=== PATIENT | male | born 1970 | race Caucasian/White ===

== ENCOUNTER 2020-01-06 13:36 | Emergency (ER) | payer OTHER, MEDICAID ==
[~2020-01-06] VITALS: Ht 175.3 cm; Wt 81.7 kg
[2020-01-06 15:08] LABS: INFLUENZA A ANTIGEN Negative (Negative); INFLUENZA B ANTIGEN Negative (Negative)
[2020-01-06 15:26] LABS: ABSOLUTE BASOPHILS 0.1 thou/uL (0.0-0.2); ABSOLUTE EOSINOPHILS 0.1 thou/uL (0.0-0.7); ABSOLUTE LYMPHOCYTES 0.7 thou/uL (0.8-5.3); ABSOLUTE MONOCYTES 0.7 thou/uL (0.0-1.2); ABSOLUTE NEUTROPHILS 7.7 thou/uL (1.6-8.1); BASOPHILS 0.7 %; EOSINOPHILS 1.1 %; HEMATOCRIT 41.9 % (42.0-52.0); HEMOGLOBIN 15.1 gm/dL (14.0-18.0); LYMPHOCYTES 7.8 %; MCH 32.4 pg (26.0-34.0); MCHC 35.9 g/dL (28.0-37.0); MCV 90.3 fL (80.0-100.0); MONOCYTES 7.1 %; MPV 10.1 fl. (7.2-11.1); NUCLEATED RBCS 0 /100WBC; PLATELET COUNT* 179 thou/uL (150-400); POLYS 83.3 %; RBC 4.64 mil/uL (4.50-6.00); RDW-CV 12.9 % (10.5-14.5); WBC 9.2 thou/uL (4.0-11.0)
[2020-01-06 15:35] LABS: CALCIUM 8.1 mg/dL (8.5-10.1); CREATININE 0.8 mg/dL (0.6-1.3); POTASSIUM 3.7 mmol/L (3.5-5.1)
[2020-01-06 15:46] LABS: ALBUMIN 3.7 g/dL (3.4-5.0); TOTAL BILIRUBIN 0.3 mg/dL (<0.1-1.0); TOTAL PROTEIN 7.4 g/dL (6.4-8.2)
[2020-01-06 16:34] LABS: SGOT 21.6 U/L (15-37)
[2020-01-06] MEDS ORDERED: VENTOLIN HFA 1818 GM INH (16:45)
[2020-01-06] MEDS ORDERED: TAMIFLU75 MG PO (16:45)
[2020-01-06] MEDS ORDERED: HYDROCODONE-CH115 ML PO ×2 (16:51→16:52)
[2020-01-06 16:59] VITALS: BP 120/75
--- NOTE | 2020-01-07 16:45 | EKG ---
[place] [address] ELECTROCARDIOGRAM REPORT Name: MORGAN MCKAY Room: [facility]#: [id number] Admission: 01/06/20 Attend Phys: Discharge: 01/06/20 Date of : 74 Date of Service: 01/06/20 1518 Report #: [id number] THIS REPORT FOR: //name// [facility] ED Test Date: 2020-01-06 Test Time: 15:18:21 Pat Name: MORGAN MCKAY Department: Room: Gender: Pediatric Medical Assistant: SEGUNDO : 1970 Requested By: Renee Nicole Order Number: [id number] MD: Davian To Measurements Intervals [place] Rate: 95 P: 58 VT: 121 QRS: 65 QRSD: 88 T: 75 QT: 346 QTc: 435 Interpretive Statements Sinus rhythm Nonspecific T abnormalities, lateral leads No previous ECG available for comparison Electronically Signed On 01-07-2020 16:44:29 BENCH MOLDER by Davian To [email or web address] <ELECTRONICALLY SIGNED> By: Davian To MD, [facility] 01/07/20 1644 1518 1518 Davian To MD, FAC /EPI
== END 2020-01-06 17:00 | disposition home or self-care (01) ==
LOC: M.ERS 13:36
PROVIDERS: Nurse Practitioner Family
DX: J98.8 Other specified respiratory disorders (principal); I25.2 Old myocardial infarction; Z88.5 Allergy status to narcotic agent; Z88.0 Allergy status to penicillin

== ENCOUNTER 2020-10-06 09:04 | Inpatient (IN) | payer OTHER ==
[~2020-10-06] VITALS: Ht 175.3 cm; Wt 81.6 kg
[2020-10-06] VITALS (13 sets, daily range): BP systolic 108–132; BP diastolic 62–96
[~2020-10-06 09:04] MED LIST: HYDROCODONE-CH115 ML PO; TAMIFLU75 MG PO; VENTOLIN HFA 1818 GM INH
[2020-10-06 09:22] LABS: ABSOLUTE BASOPHILS 0.1 thou/uL (0.0-0.2); ABSOLUTE EOSINOPHILS 0.2 thou/uL (0.0-0.7); ABSOLUTE LYMPHOCYTES 4.9 thou/uL (0.8-5.3); ABSOLUTE MONOCYTES 1.3 thou/uL (0.0-1.2); ABSOLUTE NEUTROPHILS 8.1 thou/uL (1.6-8.1); EOSINOPHILS 1.2 %; HEMATOCRIT 46.3 % (42.0-52.0); HEMOGLOBIN 16.1 gm/dL (14.0-18.0); LYMPHOCYTES 33.7 %; MCHC 34.7 g/dL (28.0-37.0); MCV 89.1 fL (80.0-100.0); MONOCYTES 8.9 %; MPV 9.4 fl. (7.2-11.1); NUCLEATED RBCS 0 /100WBC; PLATELET COUNT* 273 thou/uL (150-400); POLYS 55.2 %; RDW-CV 12.8 % (10.5-14.5); WBC 14.7 thou/uL (4.0-11.0)
[2020-10-06 09:32] LABS: CALCIUM 8.7 mg/dL (8.5-10.1); CREATININE 0.9 mg/dL (0.6-1.3); POTASSIUM 3.8 mmol/L (3.5-5.1)
[2020-10-06 09:33] LABS: APTT 24.4 Seconds (25.0-31.3); PROTIME 10.7 Seconds (9.20-11.50)
[2020-10-06 09:46] LABS: ALBUMIN 3.8 g/dL (3.4-5.0); CK-MB MASS 1.4 ng/mL (<0.5-3.6); MAGNESIUM 1.9 mg/dL (1.8-2.4); TOTAL BILIRUBIN 0.4 mg/dL (<0.1-1.0); TOTAL PROTEIN 7.5 g/dL (6.4-8.2)
--- NOTE | 2020-10-06 10:39 | NUR ---
PT ORIENTED T0 ROOM AND UNIT, BED LOW AND LOCKED, SIDE RAILS UP X3, CALL LIGHT IN REACH. RIGHT RADIAL SITE CDI WITH NO HEMATOMA. TELE APPLIED AND REVEALS NSR. PT REFUSES FLU VACCINATION AND NICTOTINE PATCH. WILL CONTIUE TO ASSESS.
[2020-10-06 11:03] LABS: HEMATOCRIT 45.5 % (42.0-52.0); HEMOGLOBIN 15.5 gm/dL (14.0-18.0); MCH 31.2 pg (26.0-34.0); MCHC 34.1 g/dL (28.0-37.0); MCV 91.6 fL (80.0-100.0); MPV 9.4 fl. (7.2-11.1); RBC 4.96 mil/uL (4.50-6.00); RDW-CV 12.7 % (10.5-14.5); WBC 14.4 thou/uL (4.0-11.0)
[2020-10-06 11:18] LABS: CHOLESTEROL 276 mg/dL (<200); HDL CHOLESTEROL 26 mg/dL (>40); LDL CHOLESTEROL 195 mg/dL (<100); TC:HDL 10.6 Ratio (Not establshd); TRIGLYCERIDE 277 mg/dL (<150); TROPONIN-I LEVEL 0.56 ng/mL (<0.06); VLDL 55 mg/dL (<40)
[2020-10-06 11:19] LABS: SERUM ASSESSMENT Clear
--- NOTE | 2020-10-06 13:33 | NUR ---
TR BAND DEFALTED AND PRESSURE DRESING APPLIED RIGHT RADIAL. RIGHT RADIAL SITE CDI WITH NO HEMATOMA, CAP REFIL LESS THAT 3 SECONDS. WILL CONTINUE TO ASSESS.
--- NOTE | 2020-10-06 16:15 | EKG ---
[place] [address] ELECTROCARDIOGRAM REPORT Name: MORGAN MCKAY Room: [address] ADM IN ..#: [id number] Admission: 10/06/20 Attend Phys: Kamar Monte MD Discharge: Date of : 74 Date of Service: 10/06/20 1209 Report #: [id number] THIS REPORT FOR: //name// [facility] Test Date: 2020-10-06 Test Time: 12:09:36 Pat Name: MORGAN MCKAY Department: Room: [facility] Gender: M Kiln Firer Helper: : 1970 Requested By: Souleymane Schilling Order Number: [id number] MD: Kamar Monte Measurements Intervals [place] Rate: 74 P: 51 DE: 107 QRS: 44 QRSD: 86 T: 79 QT: 390 QTc: 433 Interpretive Statements Sinus rhythm Short DE interval Compared to ECG 01/06/2020 15:18:21 T-wave abnormality no longer present Electronically Signed On 10-06-2020 16:15:18 BALANCE WHEEL FACER by Kamar Monte [email or web address] <ELECTRONICALLY SIGNED> By: Kamar Monte MD, FACC 10/06/20 1615 1209 1209 Kamar Monte MD, [facility] /EPI
--- NOTE | 2020-10-06 16:48 | NUR ---
DR. LÓPEZ INSTRUCT LAB NOT TO CALL TROPONIN CRITICALS UNLESS P[T HAS CHEST PAIN.
--- NOTE | 2020-10-06 17:15 | EKG ---
[place] [address] ELECTROCARDIOGRAM REPORT Name: OMRGAN MCKAY Room: [address] ADM IN M.R.#: [id number] Admission: 10/06/20 Attend Phys: Kamar Monte MD Discharge: Date of : 74 Date of Service: 10/06/20 0910 Report #: [id number] THIS REPORT FOR: //name// [facility] ED Test Date: 2020-10-06 Test Time: 09:10:39 Pat Name: MORGAN MCKAY Department: Room: [address] Gender: M Electronics Instructor: CCD : 1970 Requested By: Kamar Monte Order Number: [id number] Marion MD: Giorgi Tejeda Measurements Intervals [place] Rate: 70 P: 57 KS: 120 QRS: 62 QRSD: 81 T: 92 QT: 430 QTc: 464 Interpretive Statements Sinus rhythm Inferior infarct, acute (RCA) Probable RV involvement, suggest recording right precordial leads Baseline wander in lead(s) V6 Compared to ECG 01/06/2020 15:18:21 Myocardial infarct finding now present T-wave abnormality no longer present Electronically Signed On 10-06-2020 17:15:22 MERCURY PURIFIER by Giorgi Tejeda [email or web address] <ELECTRONICALLY SIGNED> By: Giorgi Tejeda MD, FACC 10/06/20 1715 9 9 Giorgi Tejeda MD, FACC /EPI
--- NOTE | 2020-10-06 18:11 | CARD ---
[address] [address] CARDIAC CATH REPORT Name: MORGAN MCKAY Yordy Room: [address] IN [facility]#: [id number] Admission: 10/06/20 Attend Phys: Kamar Monte MD, F Discharge: Date of : 74 Report #: [id number] THIS REPORT FOR: //name// cc: VIELKA - No family physician/PCP FAM - No family physician/PCP ~ APPROVED REPORT Study performed: 10/06/2020 09:24:10 Patient Details Patient Status: ED Room #: The patient is a 49 year-old male Event Personnel Kamar Monte Crm Consultant, Kristy Ortiz RN House Worker General, Lorenzo Jenkins PEDIATRIC ONCOLOGIST Monitor, Eric Dang PEDIATRIC ONCOLOGIST Scrub Procedures Performed Art Access - R radial artery Left Heart Cath w/or w/o Coronaries [id number] [facility] Indication Abnormal ECG, STEMI (>0 to less than or equal to 6 hours), Chest pain Risk Factors Hypercholesterolemia, Coronary Artery DiseaseHypertension, Tobacco History () Previous Procedures/Diagnoses Previous PCI, Previous KS Admission/Lab Medications/Medications given during procedure Glycoprotein IllbIlla Inhibitors, Heparin Unfract. Procedure Narrative The patient was brought emergently to the Cardiac Catheterization Laboratory and was prepped and draped in a sterile manner. The right wrist was infiltrated with 1% Lidocaine subcutaneous anesthesia. A Slender Glidesheath sheath was inserted into the right radial artery. Coronary angiography was performed using coronary diagnostic catheters. The right coronary system was accessed and visualized with a Diagnostic JR4 catheter. The left coronary system was accessed and visualized with a Diagnostic JL4 catheter. [place] [address] CARDIAC CATH REPORT Name: WOODYSUZANNERUSLANMADONNA Scales Room: [address] IN [facility]#: [id number] Admission: 10/06/20 Attend Phys: Kamar Monte MD, F Discharge: Date of : 74 Report #: [id number] accessed and visualized with a PIG Tail catheter. Left ventriculogram was performed in BOLTON projection. Closure device was deployed with a 6 Fr Vasc-Band Reg 24cm. The patient tolerated the procedure well and there were no complications associated with the procedure. There was no hematoma. Intraoperative Conscious Sedation Sedation start time: 930 Case end Time: 1016 Fluoro Time: 7.8 minutes Dose: DAP 1311 cGycm2 67.1 mGy Contrast Type and Amount: Visipaque 170 ml Coronary Angiography The patient's coronary anatomy is right dominant. Diagnostic Cath Left Main 0% stenosis LAD Stent in the proximal LAD had a 50% restenosis. Mid LAD had a discrete 50% stenosis Circumflex 50% mid stenosis noted Right Coronary RCA appeared acutely occluded after the conus branch with thrombus noted. There was a 80% stenosis noted after the acute margin of the artery after reperfusion established. Left Ventriculography The left ventricular ejection fraction is estimated to be 50-55%. Left ventricular wall motion abnormalities are present. There is no mitral insufficiency. mild inferior wall hypokinesis noted Hemodynamics The aortic pressure is 114/74 mmHg with a mean of 90 mmHg. The left ventricular pressure is 127/10 mmHg with a mean of mmHg. The left ventricular end diastolic pressure is 12 mmHg. There was no gradient across the aortic valve upon pullback. Pullback from the left ventricle to the aorta revealed no gradient across the aortic valve. PCI Technique Lesion Anticoagulation was achieved with Heparin. bolus of iv aggrastat given Percutaneous coronary intervention was performed on the proximal and mid right coronary artery. The lesion stenosis prior to intervention was 100% with EDWIN 0 flow. A 6FR JCR 4 100CM Guide Catheter was used to engage the right ostium. A IG: BMW 190cm Interventional Guidewire was used [place] [address] CARDIAC CATH REPORT Name: MORGAN MCKAY Yordy Room: [address]#: [id number] Admission: 10/06/20 Attend Phys: Kamar Monte MD, F Discharge: Date of : 74 Report #: [id number] BALLOON DILATION A Balloon catheter Trek RX 2.5 X 8 was inserted and inflated up to 14.00atm for 9seconds. Repeat angiography revealed the following post-dilatation results: 70% stenosis noted and a distal 80% stenosis after the acute margin of the artery.. STENT DEPLOYMENT A drug-eluting stent 3.0 x 26 mm was inserted and inflated up to 15.00atm for 13seconds. Repeat angiography revealed the following post-stent deployment results: 0% stenosis.. A second drug eluting stent 3.5 x 26 mm was placed in the proximal rca so that there was minimal overlap between this stent and the stent in the distal rca. Final angiography reveals 0 % stenosis with EDWIN 3 flow. Conclusion 1. 50% restenosis of the stent in the proximal lad 2. acute occlusion of the proximal rca 3. successful placement of 2 drug eluting stents in the distal and proximal rca 4. LVEF 50-55% Recommendations Smoking Cessation Medications Administered Prasugrel <ELECTRONICALLY SIGNED> By: Kamar Monte MD, [facility] 10/06/201809 09 09Daabhishek Monte MD, FACC /INF
--- NOTE | 2020-10-06 18:24 | NUR ---
PT RESTING IN ROOM RIGHT RADIAL SITE CDI WITH NO HEMATOMA. PT DENIES PAIN OR DOA AT THIS TIME.
--- NOTE | 2020-10-06 18:56 | NUR ---
BEDSIDE REPORT GIVEN TO CRISTINA RUIZ.
[2020-10-07] VITALS (11 sets, daily range): BP systolic 108–133; BP diastolic 62–82
[2020-10-07 03:36] LABS: CALCIUM 8.1 mg/dL (8.5-10.1); CREATININE 0.9 mg/dL (0.6-1.3); POTASSIUM 4.1 mmol/L (3.5-5.1)
--- NOTE | 2020-10-07 05:16 | NUR ---
ASSUMED CARE AT 1910H, ON RA AND TOLERATED. SEEN ON BED WITH NO COMPLAIN. NO CHEST PAIN AND NO BLEEDING NOTED. PT WAS HOPING HE CAN GO HOME TODAY. CONTINUE MONITORING AND TOWARDS GOALS.
[2020-10-07] MEDS ORDERED: EFFIENT10 MG PO (08:11)
[2020-10-07] MEDS ORDERED: LIPITOR40 MG PO (08:12)
[2020-10-07] MEDS ORDERED: NITROGLYCERIN0.4 MG SUBLING (08:13)
[2020-10-07] MEDS ORDERED: CARVEDILOL3.125 MG PO (08:14)
[2020-10-07] MEDS ORDERED: ASPIR 8181 MG PO (08:15)
--- NOTE | 2020-10-07 10:18 | NUR ---
PT DISCHARGED AT 1010 TO HOME/SELF FOLLOW UP IN ONE WEEK AT DR LÓPEZ OFFICE NEW SCRIPTS GIVEN TO PT AND INFO SHEETS PT HAD NO QUESTIONS IV REMOVED DISCHARGE PACKET GIVEN SPOUSE PICKED UP PT
--- NOTE | 2020-10-07 10:48 | EKG ---
[place] [address] ELECTROCARDIOGRAM REPORT Name: MORGAN MCKAY Room: [address] IN M.R.#: [id number] Admission: 10/06/20 Attend Phys: Kamar Monte MD Discharge: 10/07/20 Date of : 74 Date of Service: 10/07/20 0608 Report #: [id number] THIS REPORT FOR: //name// [facility] Test Date: 2020-10-07 Test Time: 06:08:57 Pat Name: MORGAN MCKAY Department: Room: [address] Gender: M Bottom Saw Operator: [id number] : 1970 Requested By: Kamar Monte Order Number: [id number] Marion MD: Giorgi Tejeda Measurements Intervals [place] Rate: 75 P: 55 AK: 108 QRS: 31 QRSD: 90 T: 46 QT: 433 QTc: 484 Interpretive Statements Sinus rhythm Short [place] interval Compared to ECG 10/06/2020 12:09:36 No significant changes Electronically Signed On 10-07-2020 10:48:34 DIRECTOR OF ACCREDITATION by Giorgi Tejeda [email or web address] <ELECTRONICALLY SIGNED> By: Goirgi Tejeda MD, FACC 10/07/20 1048 0608 0608 Giorgi Tejeda MD, FAC /EPI
--- NOTE | 2020-10-07 13:47 | H ---
[place] [address] HISTORY AND PHYSICAL Name: MORGAN MCKAY Room: [address] IN [place].#: [id number] Admission: 10/06/20 Attend Phys: Kamar Monte MD, F Discharge: 10/07/20 Date of : 74 Report #: [id number] THIS REPORT FOR: //name// cc: VIELKA Dozier family physician/PCP VIELKA - No family physician/PCP ~ CC: Kamar Monte FAM physician/PCP DATE OF SERVICE: 10/06/2020 HISTORY OF PRESENT ILLNESS: The patient is a 49-year-old white male who I was asked to see in the Emergency Room today after he complained of chest pain. The history is obtained from the patient. There are no family members available. There are no old records available. The patient notes that 4 years ago, he was living on ____ [place]. He had a myocardial infarction and had a coronary stent placed at that time. He has a history of high blood pressure and previously was on carvedilol, Crestor for hyperlipidemia, Plavix and aspirin a day; however, he subsequently quit taking all of his medications. He stays active at work at this time. Recently, he has had occasional episodes of chest discomfort that did not last very long; however, on the morning of admission about an hour prior to arrival, he had a sudden onset of a burning in his chest while he was lying in bed. It went in his left arm. He became diaphoretic and short of breath. Denied any palpitations or syncope. He has had no recent fever, cough, bleeding. Denied trauma to his chest. The pain was not related to food. He called the ambulance. He was brought here to [facility] by ambulance. An EKG showed evidence of acute inferior STEMI. I was asked to see him on an emergent basis. He does have a chronic cough. Denies exertional dyspnea, palpitations, syncope, or peripheral edema. He has had no history of bleeding problems. PAST MEDICAL HISTORY: He has had no surgical procedures. He has a history of hypertension, hyperlipidemia. No history of diabetes. He is currently on no medications. He does take aspirin occasionally. ALLERGIES: HE HAS A PREVIOUS INTOLERANCE TO PENICILLIN AND CODEINE. FAMILY HISTORY: Positive for heart disease. SOCIAL HISTORY: He is . He and his live here in [place]. He works as a lawn service. Unfortunately, he has no medical insurance at this time. He smokes half pack of cigarettes a day. No alcohol abuse. He does smoke marijuana occasionally. REVIEW OF SYSTEMS: No history of stroke, asthma, liver disease, kidney disease, bleeding, cancer, psychiatric illness, [place] [address] HISTORY AND PHYSICAL Name: MORGAN MCKAY Room: [facility] IN [facility]#: [id number] Admission: 10/06/20 Attend Phys: Kamar Monte MD, F Discharge: 10/07/20 Date of : 74 Report #: [id number] PHYSICAL EXAMINATION: GENERAL: Revealed a middle-aged male, appeared in severe distress secondary to chest pain. VITAL SIGNS: Blood pressure 120/70, pulse is 70. HEENT: He was anicteric. Conjunctivae are pink. Mucous members are moist. NECK: Veins do not appear distended. No carotid bruits. Neck supple. CHEST: Clear to auscultation. CARDIOVASCULAR: Regular rate and rhythm without murmur. ABDOMEN: Soft. EXTREMITIES: Had no edema. Posterior tibial pulse 2+ bilaterally. SKIN: He was diaphoretic. NEUROLOGIC: Nonfocal. LYMPH: No adenopathy. RADIOLOGICAL DATA: ECG on admission showed a sinus rhythm with ST segment elevation in II, III and aVF of up to 1.5 mm, reciprocal ST segment depression V1, V2 and V3. His workup in the Emergency Room he actually had a portable chest x-ray done in December this year when he complained of cough that showed no significant abnormalities. LABORATORY DATA: Sodium 138, potassium 3.8, creatinine 0.9, glucose 153. Liver function studies: Alkaline phosphate is 146. His troponin on admission 0.06. BNP 56. White blood cell count 14.7, hemoglobin 16.1. COVID antigen stat test was negative. IMPRESSION AND RECOMMENDATIONS: 1. Acute inferior ST elevation myocardial infarction. Recommend urgent cardiac catheterization. 2. Previous coronary artery stent. Recommend an aspirin a day. 3. History of myocardial infarction. Recommend KODY inhibitor. 4. Hypertension, currently not treated. 5. Hyperlipidemia. Recommend a statin drug. 6. Tobacco abuse. 7. Elevated blood sugar. Recommend ruling out diabetes. Critical care time was done from 9:15 a.m. until 10:45 p.m. for a total of 1 hour and 30 minutes. <ELECTRONICALLY SIGNED> By: Kamar Monte MD, FACC 10/07/20 1347 1034 1048Kamar Monte MD, FACC /nt
--- NOTE | 2020-10-07 13:47 | D ---
[address] [address] DISCHARGE SUMMARY Name: MORGAN MCKAY Room: [address] IN [place]#: [id number] Admission: 10/06/20 Attend Phys: Kamar Monte MD, F Discharge: 10/07/20 Date of : 74 Report #: [id number] THIS REPORT FOR: //name// cc: VIELKA - Tasia family physician/PCP VIELKA - No family physician/PCP ~ CC: Kamar Monte FAM physician/PCP DATE OF SERVICE: 10/06/2020 DISCHARGE DIAGNOSES: 1. Acute inferior wall ST segment elevation myocardial infarction. 2. Coronary artery disease. 3. Hypertension. 4. Hyperlipidemia. 5. Tobacco abuse. CONSULTANTS: None. PROCEDURES: Emergent left heart catheterization with placement of 2 drug-eluting stents in the right coronary artery via the radial approach. HISTORY OF PRESENT ILLNESS: The patient is a 49-year-old white male who came to the Emergency Room complaining of chest pain. The patient notes 4 years ago, he had a myocardial infarction and was admitted to [facility] where he lived at the time. He apparently had a coronary stent placed at that time. He was discharged on carvedilol, Crestor, Plavix, aspirin. Unfortunately, he had no medical insurance at that time and stopped taking all of his medications. He currently takes aspirin only occasionally. He notes recently he has been having intermittent chest discomfort. However, the day of admission, he awakened at approximately 7 in the morning with pain in his chest, became diaphoretic. He called EMS and was brought here to [place]. He was found to have evidence of an acute inferior STEMI. I was asked to see him on an emergent basis. PAST MEDICAL HISTORY: He has had no major surgical procedures. He has a history of hypertension, hyperlipidemia, currently is on no medications. SOCIAL HISTORY: He works as a ironworker. Unfortunately, he has no medical insurance. He smokes half pack of cigarettes a day. No alcohol abuse. PHYSICAL EXAMINATION: VITAL SIGNS: On admission, blood pressure is 120/70, pulse is 90. CHEST: Clear to auscultation. CARDIAC: Regular rate and rhythm. ABDOMEN: [place] [address] DISCHARGE SUMMARY Name: MORGAN MCKAY Room: [address]#: [id number] Admission: 10/06/20 Attend Phys: Kamar Monte MD, F Discharge: 10/07/20 Date of : 74 Report #: [id number] EXTREMITIES: Had no edema. SKIN: Warm, dry. DIAGNOSTIC STUDIES: ECG: Sinus rhythm with inferior ST-segment elevation. His chest x-ray showed normal heart size, clear lung . LABORATORY DATA: On admission, his troponin was 0.6. His sodium was 141, creatinine 0.9, glucose 108. Liver function studies were normal. His peak troponin was 3.95. His cholesterol was 276, triglyceride 277, HDL 26, LDL 195. White blood cell count 14.4, hemoglobin 15.5. HOSPITAL COURSE: The patient was taken urgently to the cardiac catheterization lab. I performed emergent cardiac catheterization from the right radial artery. Results showed an acute occlusion of the proximal right coronary artery. I then performed angioplasty and placed 2 drug-eluting stents in the right coronary artery. The stent in the proximal LAD had 50% restenosis. There was a 50% narrowing of the circumflex artery. Ejection fraction was 60%. He tolerated the procedure well. He was given heparin and Aggrastat during the procedure. Following the procedure, he was loaded with Effient 60 mg. He was placed on carvedilol and atorvastatin following the procedure. Following the procedure, he had no hematoma in the right wrist. He denied any recurrent chest pain, shortness of breath, palpitations. On the monitor, he remained in sinus rhythm with no ectopy. Followup ECG showed a sinus rhythm, no inferior Q-waves. At time of discharge, he is ambulating, had no further complaints. He was discharged to return to see my nurse practitioner in 1 week. He is not to return to work for the next week. He was to contact my office if he had recurrent chest pain or shortness of breath. I recommended he attempt to stop smoking. He was discharged on aspirin 81 mg a day, Effient 10 mg a day. He was given nitroglycerin to take as needed for chest pain. He was started on carvedilol 3.125 mg twice a day, Lipitor 40 mg a day. I did recommend he obtain a primary care physician. He is not to return to work for the next week. I did recommend he enroll in cardiac rehabilitation. His prognosis is guarded due to his diffuse coronary artery disease. At time of discharge, his blood pressure of 120/70, pulse 70, he was afebrile. <ELECTRONICALLY SIGNED> By: Kamar Monte MD, FACC 10/07/20 1347 0839 0850Daabhishek Monte MD, FACC /nt
== END 2020-10-07 10:10 | disposition home or self-care (01) | DRG 246 ==
LOC: M.ERS 09:04 → M.CL 09:04 → M.TBA-CV 10:23 → M.ICU 10:37
PROVIDERS: Family Medicine; ADMIT Internal Medicine Cardiovascular Disease; ATTEND Internal Medicine Cardiovascular Disease
PROC: B215YZZ Fluoroscopy of Left Heart using Other Contrast (ICD-10-PCS; principal; 2020-10-06)
PROC: 4A023N7 Measurement of Cardiac Sampling and Pressure, Left Heart, Percutaneous Approach (ICD-10-PCS; principal; 2020-10-06)
PROC: 027034Z Dilation of Coronary Artery, One Artery with Drug-eluting Intraluminal Device, Percutaneous Approach (ICD-10-PCS; principal; 2020-10-06)
PROC: B211YZZ Fluoroscopy of Multiple Coronary Arteries using Other Contrast (ICD-10-PCS; principal; 2020-10-06)
DX: T82.855A Stenosis of coronary artery stent, initial encounter (principal); I21.19 ST elevation (STEMI) myocardial infarction involving other coronary artery of inferior wall; Y83.8 Other surgical procedures as the cause of abnormal reaction of the patient, or of later complication, without mention of misadventure at the time of the procedure; I25.10 Atherosclerotic heart disease of native coronary artery without angina pectoris; E78.5 Hyperlipidemia, unspecified; E78.00 Pure hypercholesterolemia, unspecified; Z20.828 Contact with and (suspected) exposure to other viral communicable diseases; I25.2 Old myocardial infarction; Z95.5 Presence of coronary angioplasty implant and graft; Z88.0 Allergy status to penicillin; Z88.6 Allergy status to analgesic agent; Y92.89 Other specified places as the place of occurrence of the external cause; Z82.49 Family history of ischemic heart disease and other diseases of the circulatory system